=== PATIENT | female | born 1995 | race Caucasian/White ===

== ENCOUNTER → 2020-09-07 15:45 | Outpatient (ROUT) | payer SELFPAY ==
[2020-09-07 15:47] LABS: Urine Drug Scr, Empl Non-NIDA See Separate Report
== END ==
DX: Z02.1 Encounter for pre-employment examination (principal)
CPT/HCPCS: 81099

== ENCOUNTER → 2021-01-13 | Outpatient (CLI) | payer OTHER, SELFPAY | PROVIDERS: Referring Provider Internal Medicine; Visit Provider Internal Medicine | DX: Z23 Encounter for immunization (principal) | CPT/HCPCS: 90471; 90686 ==

== ENCOUNTER 2021-07-02 11:27 | Emergency (ER) | payer OTHER, SELFPAY ==
[2021-07-02 11:59] VITALS: BP 119/82; PULSE 123; RESP 22; TEMP 37; O2SAT 97; BMI 37.8
--- NOTE | 2021-07-02 12:41 | DI.CT.S_ITS ---
PROCEDURE: CT ABDOMEN PELVIS W CON INDICATIONS: LLQ pain>1 week, tachycardic, emesis, no blood in stool TECHNIQUE: After the administration of IV contrast, axial sections were acquired from the lung bases to the pubic symphysis. Coronal and sagittal reformats were performed. For radiation dose reduction, the following was used: automated exposure control, adjustment of mA and/or kV according to patient size. COMPARISON: None. FINDINGS: Image quality: Excellent. Lung bases: Unremarkable. Heart: No significant findings. ABDOMEN: Liver: Diffuse fatty liver infiltration is noted. The liver is prominent in size and demonstrates no suspicious lesions. Gallbladder: Unremarkable. Biliary ducts: Unremarkable. Pancreas: Unremarkable. Spleen: Unremarkable. Adrenal Glands: Unremarkable. Kidneys and Ureters: A simple appearing cyst is seen at the inferior pole of the left kidney measuring 1.8 cm. The kidneys demonstrate normal size and enhance symmetrically. There is no hydronephrosis. Stomach and Bowel: In this patient with this given history, scrutiny is given to the sigmoid colon. No sigmoid colon abnormality is seen. No left lower quadrant inflammatory change can be seen. Stomach, small bowel loops, and colon are unremarkable. A normal appendix is incidentally noted. Peritoneum: No abnormal intraperitoneal fluid. No free air. Ventral Wall: No hernia. Abdominal Nodes: No retroperitoneal or mesenteric adenopathy by size criteria. Vessels: Aorta and inferior vena cava are normal in size. PELVIS: Pelvic Organs: The uterus appears normal for age. No adnexal masses are seen. Bladder: Unremarkable. Pelvic Nodes: No enlarged lymph nodes. Miscellaneous: No inguinal hernias are seen. Bones: Unremarkable. IMPRESSION: Normal sigmoid colon, without diverticulitis. No adnexal masses are seen. Incidental note is made of: Prominent, fatty liver infiltration Simple left renal cyst Normal appendix Dictated by: Jorge Jurado M.D. on 07/02/2021 at 12:28 Approved by: Jorge Jurado M.D. on 07/02/2021 at 12:31
[2021-07-02] MEDS: SODIUM CHLORIDE 0.9% 1,000 ML 1000 ML IV (13:08)
[2021-07-02] MEDS: ONDANSETRON 4 MG/2 ML INJ IV (13:08)
[2021-07-02 13:15] LABS: Add Manual Diff / Slide Review NO; Basophils Absolute Auto 0 /uL (0-100); Basophils Percent Auto 0.3 % (0-2); Eosinophils Absolute Auto 100 /uL (0-450); Eosinophils Percent Auto 0.6 % (2-4); Hematocrit 43.2 % (36-46); Lymphocytes Absolute Auto 900 /uL (1100-4500); Lymphocytes Percent Auto 8.9 % (25-40); Mean Corpuscular HGB Conc 34.8 % (30-36); Mean Corpuscular Hemoglobin 29.6 PG (26-34); Mean Corpuscular Volume 85.2 fL (80-100); Monocytes Absolute Auto 500 /uL (0-900); Monocytes Percent Auto 4.9 % (3-14); Neutrophils Absolute Auto 8200 /uL (1500-7000); Neutrophils Percent Auto 85.3 % (50-75); Platelet Count 248 X10^3/uL (150-400); Red Blood Cell Count 5.08 X10^6/uL (4.0-5.2); Red Cell Distribution Width 12.3 % (11.6-14.8); White Blood Cell Count 9.6 X10^3/uL (4.5-11.0)
--- NOTE | 2021-07-02 13:22 | ED_ITS ---
HPI - Abdominal Pain <NAVI Dunbar - Last Filed: 07/02/21 15:58> General Chief Complaint: Abdominal Pain Stated Complaint: Left side inter. abd pain/vomiting x1wk Time Seen by Provider: 07/02/21 12:36 Source: patient Mode of arrival: Family Vehicle History of Present Illness HPI narrative: 26-year-old female with history of anxiety, depression, chronic UTIs who presents the emergency to the department complaining of 1 week of lower left quadrant pain which has been intermittent in nature. She denies any blood in her stool, states that she has not had any diarrhea or any change your bowel movements, her last menstrual period was 2 weeks ago, she is a , she has a CT scheduled on Sunday from her primary care provider on the [employer]. She was instructed to come to the emergency department if she has any worsening. Patient states that she has been nauseated without any emesis until this morning and she vomited x1. She denies any food this morning. She states that she has some mild left lower back pain but denies any dysuria, urinary frequency, bladder pressure, abnormal vaginal discharge, fever, other abdominal pain, any relation of pain to food. She denies taking any medication for this this morning. she denies any rectal pain, she denies any pain with bowel movements, denies any history of abdominal surgery. Related Data Home Medications Medication Instructions Recorded Confirmed control PO 08/19/20 10/18/20 loratadine 10 mg capsule 10 mg PO DAILY 08/19/20 10/18/20 sertraline 50 mg tablet 50 mg PO DAILY 08/19/20 10/18/20 Previous Rx's Medication Instructions Recorded hydrocortisone-pramoxine 2.5 %-1 % 1 applic TOPICAL BID PRN #57 g 10/18/20 topical cream ondansetron 4 mg disintegrating 4 mg PO Q8H PRN 5 Days #10 tab 07/02/21 tablet sulfamethoxazole 800 1 tab PO BID 7 Days #14 tab 07/02/21 mg-trimethoprim 160 mg tablet (Bactrim DS) tramadol 50 mg tablet 50 mg PO BID PRN #10 tab 07/02/21 Allergies Allergy/AdvReac Type Severity Reaction Status Date / Time No Known Drug Allergies Allergy Unverified 10/18/20 13:10 Review of Systems <NAVI Dunbar - Last Filed: 07/02/21 15:58> Review of Systems Narrative: General: denies fever, chills, malaise, sweats, fatigue Head/Neck: denies headache, neck pain, dizziness Eyes: denies visual changes, eye pain Cardio: denies chest pain, palpitations, edema Respiratory: denies dyspnea, cough, orthopnea GI: endorses left lower quadrant abdominal pain, endorses nausea, emesis x1 was this morning, denies any constipation or or diarrhea : denies dysuria, hematuria, urinary retention, frequency or incontinence MSK: denies joint pain, muscle weakness Skin: denies rash, itching, skin lesions or other Neuro: denies numbness, tingling Patient History <NAVI Dunbar - Last Filed: 07/02/21 15:58> Medical History Anxiety Chronic UTI Depression Hip dysplasia Hx of septic shock Surgical History History of hip surgery Hx of wisdom tooth extraction Family History Grandmother Hypertension Grandfather Diabetes mellitus Mother Thyroid cancer Social History marital status: household members: spouse and children Smoking Status: Former smoker alcohol intake: current substance use type: does not use Smoking Status: Former smoker tobacco type: cigarettes alcohol intake frequency: a few times a month Substance Use Type: does not use Exam <NAVI Dunbar - Last Filed: 07/02/21 15:58> Narrative Exam Narrative: Independently reviewed vitals signs and nursing notes. General: cooperative, appears tired and uncomfortable, well developed and well groomed Head: atraumatic, symmetrical facial expressions Neck: supple, atraumatic, without lymphadenopathy. Eyes: pupils equal round and reactive, EOMI, conjunctiva normal Nose: nares patent, no rhinorrhea Mouth/Throat: uvula midline, moist mucus membranes Cardiovascular: regular rate and rhythm, no peripheral edema, warm extremities Respiratory: normal effort, able to speak in complete sentences, no audible wheezing, stridor, or rales. No retractions or tachypnea. GI: abdomen soft, tender to palpation over left lower quadrant, nondistended, no masses, no exquisite tenderness with exam, without guarding or rebound. MSK: moves all extremities, ambulatory w/steady gait, neurovascularly intact, no weakness Skin: brisk capillary refill, no rash, no erythema Neuro: normal speech and cognition, A&O x3, normal tone Psych: mental status is grossly normal, congruent mood, normal affect, pleasant and cooperative Initial Vital Signs Initial Vital Signs: Vital Signs Temperature 98.6 F 07/02/21 11:59 Pulse Rate 123 H 07/02/21 11:59 Respiratory Rate 22 07/02/21 11:59 Blood Pressure 119/82 07/02/21 11:59 Pulse Oximetry 97 07/02/21 11:59 Course <NAVI Dunbar - Last Filed: 07/02/21 15:58> Orders Ordered: ED Orders 07/02/21 12:41 CT abdomen pelvis w con Stat 07/02/21 13:00 Complete Blood Count AUTO DIFF Stat Comprehensive Metabolic Panel Stat Lactate (Lactic Acid) Stat Lipase Stat Discontinued Medications Sodium Chloride (Normal Saline 0.9%) 1,000 mls @ 1,000 mls/hr IV BOLUS ONE Stop: 07/02/21 13:40 Last Infusion: 07/02/21 14:51 Dose: 0 mls/hr Documented by: Admin: 07/02/21 13:08 Dose: 1,000 mls/hr Documented by: JACKY Ondansetron HCl (Ondansetron 4 Mg/2 Ml Inj) 4 mg IV NOW ONE Stop: 07/02/21 12:42 Last Admin: 07/02/21 13:08 Dose: 4 mg Documented by: JACKY Oxycodone/Acetaminophen (Oxycodone/Acetaminophen 5/325 Tablet) 1 tab PO NOW ONE Stop: 07/02/21 14:48 Last Admin: 07/02/21 14:53 Dose: 1 tab Documented by: JACKY Trimethoprim/Sulfamethoxazole (Trimeth/Sulfa 160/800 (Ds) Tablet) 1 tab PO NOW ONE Stop: 07/02/21 13:52 Last Admin: 07/02/21 14:31 Dose: 1 tab Documented by: JACKY Vital Signs Vital signs: Vital Signs - 8 hr 07/02/21 14:27 07/02/21 15:28 Pulse Rate 105 H 99 H Respiratory Rate 20 16 Blood Pressure 110/68 110/69 Pulse Oximetry 98 98 MDM - Abdominal Pain <NAVI Dunbar - Last Filed: 07/02/21 15:58> Lab Data Result diagrams: 07/02/21 13:00 07/02/21 13:00 Labs: Lab Results 07/02/21 07/02/21 07/02/21 Range/Units 12:20 12:20 13:00 WBC 9.6 (4.5-11.0) X10^3/uL RBC 5.08 (4.0-5.2) X10^6/uL Hgb 15.0 (12.0-16.0) g/dL Hct 43.2 (36-46) % MCV 85.2 (80-100) fL MCH 29.6 (26-34) PG MCHC 34.8 (30-36) % RDW 12.3 (11.6-14.8) % Plt Count 248 (150-400) X10^3/uL Neut % (Auto) 85.3 H (50-75) % Lymph % (Auto) 8.9 L (25-40) % Allen % (Auto) 4.9 (3-14) % Eos % (Auto) 0.6 L (2-4) % Baso % (Auto) 0.3 (0-2) % Neut # (Auto) 8200 H (1808-2481) /uL Lymph # (Auto) 900 L (0553-6551) /uL Allen # (Auto) 500 (0-900) /uL Eos # (Auto) 100 (0-450) /uL Baso # (Auto) 0 (0-100) /uL Sodium (137-145) mmol/L Potassium (3.4-5.1) mmol/L Chloride (98-107) mmol/L Carbon Dioxide (22-32) mmol/L BUN (7-17) mg/dL Creatinine (0.52-1.04) mg/dL Estimated GFR (>60) mL/min BUN/Creatinine Ratio (6-22) Glucose (70-100) mg/dL Lactate (0.7-2.1) mmol/L Calcium (8.4-10.2) mg/dL Total Bilirubin (0.2-1.3) mg/dL AST (14-36) IU/L ALT (<35) IU/L Alkaline Phosphatase (38-126) U/L Total Protein (6.3-8.2) g/dL Albumin (3.5-5.0) g/dL Globulin (1.7-4.1) g/dL Albumin/Globulin Ratio (1.0-2.8) Lipase (23-300) U/L Urine RBC 5-10/hpf H (0-5/HPF) Urine WBC 0-1/hpf (0-5/HPF) Ur Squamous Epith Cells 1-5 /hpf (0-5/HPF) Urine Bacteria Moderate (10-30) H (None) Ur Culture Indicated? Cult not indicated Ur Chlamydia DNA (PCR) Not detected N gonorrhoeae DNA (PCR) Not detected 07/02/21 07/02/21 Range/Units 13:00 13:00 WBC (4.5-11.0) X10^3/uL RBC (4.0-5.2) X10^6/uL Hgb (12.0-16.0) g/dL Hct (36-46) % MCV (80-100) fL MCH (26-34) PG MCHC (30-36) % RDW (11.6-14.8) % Plt Count (150-400) X10^3/uL Neut % (Auto) (50-75) % Lymph % (Auto) (25-40) % Allen % (Auto) (3-14) % Eos % (Auto) (2-4) % Baso % (Auto) (0-2) % Neut # (Auto) (0889-6974) /uL Lymph # (Auto) (1316-5290) /uL Allen # (Auto) (0-900) /uL Eos # (Auto) (0-450) /uL Baso # (Auto) (0-100) /uL Sodium 140 (137-145) mmol/L Potassium 4.2 (3.4-5.1) mmol/L Chloride 108 H (98-107) mmol/L Carbon Dioxide 21 L (22-32) mmol/L BUN 13 (7-17) mg/dL Creatinine 0.67 (0.52-1.04) mg/dL Estimated GFR > 60.0 (>60) mL/min BUN/Creatinine Ratio 19.4 (6-22) Glucose 98 (70-100) mg/dL Lactate 0.9 (0.7-2.1) mmol/L Calcium 9.0 (8.4-10.2) mg/dL Total Bilirubin 1.3 (0.2-1.3) mg/dL AST 57 H (14-36) IU/L ALT 77 H (<35) IU/L Alkaline Phosphatase 58 (38-126) U/L Total Protein 8.0 (6.3-8.2) g/dL Albumin 4.6 (3.5-5.0) g/dL Globulin 3.4 (1.7-4.1) g/dL Albumin/Globulin Ratio 1.4 (1.0-2.8) Lipase 59 (23-300) U/L Urine RBC (0-5/HPF) Urine WBC (0-5/HPF) Ur Squamous Epith Cells (0-5/HPF) Urine Bacteria (None) Ur Culture Indicated? Ur Chlamydia DNA (PCR) N gonorrhoeae DNA (PCR) Point of care testing: Point of Care Testing Test Results Negative Urine Dip Bedside Urine Glucose Negative Bedside Urine Bilirubin + 1 Bedside Urine Ketone +/- 5 Urine Specific [place] 1.030 Bedside Urine Occult Blood +++ Bedside Urine pH 6.0 Bedside Urine Protein +/- 15 Bedside Urine Urobilinogen - Negative Bedside Urine Nitrite - Negative Bedside Urine Leukocytes - Negative Esterase Imaging Data CT scan - abdomen/pelvis: Radiologist's Impression: PROCEDURE:? CT ABDOMEN PELVIS W CON ? INDICATIONS:? LLQ pain>1 week, tachycardic, emesis, no blood in stool ? TECHNIQUE:? After the administration of IV contrast, axial sections were acquired from the lung bases to the pubic symphysis.? Coronal and sagittal reformats were performed.? For radiation dose reduction, the following was used:? automated exposure control, adjustment of mA and/or kV according to patient size. ? COMPARISON:? None. ? FINDINGS:? Image quality:? Excellent.? ? Lung bases:? Unremarkable.? ? Heart:? No significant findings. ? ? ABDOMEN: Liver: Diffuse fatty liver infiltration is noted.? The liver is prominent in size and demonstrates no suspicious lesions. Gallbladder:? Unremarkable.? ? Biliary ducts:? Unremarkable.? ? Pancreas:? Unremarkable.? ? Spleen:? Unremarkable.? ? Adrenal Glands:? Unremarkable.? ? Kidneys and Ureters:? A simple appearing cyst is seen at the inferior pole of the left kidney measuring 1.8 cm.? The kidneys demonstrate normal size and enhance symmetrically.? There is no hydronephrosis. ? Stomach and Bowel:? In this patient with this given history, scrutiny is given to the sigmoid colon.? No sigmoid colon abnormality is seen.? No left lower quadrant inflammatory change can be seen. Stomach, small bowel loops, and colon are unremarkable.? A normal appendix is incidentally noted.? Peritoneum:? No abnormal intraperitoneal fluid.? No free air.? ? Ventral Wall: ? No hernia.? Abdominal Nodes:? No retroperitoneal or mesenteric adenopathy by size criteria.? Vessels:? Aorta and inferior vena cava are normal in size.? ? PELVIS: Pelvic Organs: The uterus appears normal for age.? No adnexal masses are seen.? Bladder:? Unremarkable.? ? Pelvic Nodes: No enlarged lymph nodes.? Miscellaneous: No inguinal hernias are seen. ? ? ? Bones:? Unremarkable.? IMPRESSION:? ? Normal sigmoid colon, without diverticulitis. ? No adnexal masses are seen. ? Incidental note is made of: Prominent, fatty liver infiltration Simple left renal cyst Normal appendix ? Dictated by: Jorge Jurado M.D. on 07/02/2021 at 12:28 ? ? Approved by: Jorge Jurado M.D. on 07/02/2021 at 12:31 ? MDM Narrative Medical decision making narrative: 26-year-old female presents to the emergency department with complaint of left lower quadrant pain intermittently for 1 week which became worse today with nausea, emesis x1 left flank pain. Patient had a scheduled CT this coming Sunday by her primary care provider who is [facility] on [facility] [employer] [employer], she was instructed to come to the emergency department for any worsening of her symptoms. She is a , last menstrual period 2 weeks ago, test was negative, history of chronic UTIs, anxiety and depression. She had 1 episode of emesis this morning, no blood in her stool or her emesis. No fevers, no dysuria. She was tachycardic in triage, with a heart rate of 123, afebrile, no hypotension. UA was negative for leukocytes or bacteria however she had 3+ blood. CT abdomen pelvis was order for concern pyelonephritis versus nephrolithiasis, diverticulitis, perforated viscus concern. CT abdomen pelvis shows Prominent fatty liver infiltration, this is consistent with her mildly elevated liver enzymes, without any previous records to compare to. CT showed normal sigmoid colon without diverticulitis, no adnexal masses are seen, no enlarged lymph nodes, no free air or free fluid in her abdomen, there is a small inferior pole cyst of her left kidney measuring 1.8 cm. There is no hydronephrosis, bladder appeared unremarkable. Her appendix appeared normal as well. Urine was negative. Urine gonorrhea chlamydia are negative. Lab work was significant for left shift without leukocytosis, AST 57, ALT is 77, moderate bacteria in her UA with RBCs, her last menstrual cycle was 2 weeks ago. Urine chlamydia and gonorrhea are still pending, urine was cultured. Patient is appropriate and amenable to discharge home. Vital signs are stable on repeat examination is unremarkable. Patient has been informed of results. Patient has been given strict return to ER precautions for any new or worsening symptoms. Patient understands to follow up closely with outpatient providers as instructed. Patient understands plan and agrees to discharge home. All questions and concerns answered at this time. Discharge Plan Departure Patient Disposition: Home Clinical Impression: Hepatic steatosis UTI (urinary tract infection) Qualifiers: Urinary tract infection type: acute cystitis Hematuria presence: with hematuria Qualified Code(s): N30.01 - Acute cystitis with hematuria Instructions: Urinary Tract Infection, DI for Nonalcoholic Fatty Liver Disease Activity Restrictions/Additional Instructions: *You have been diagnosed with a Urinary tract infection And your liver is enlarged and infiltrated, this is known as fatty liver disease, herpetic steatosis. Please follow-up with your primary care provider about monitoring this half-way. I have ordered a urine culture, please take these antibiotics as prescribed, follow-up with your primary care provider if you are not getting any better. Please have a clear liquid diet for the next 1-2 days until you start feeling better. I have sent some Zofran to your pharmacy as well. You can use this for nausea. I hope you start feeling better soon. Please take Tylenol and ibuprofen as needed for your pain. Please try stay hydrated. *What to do: *Please continue to take your regular medications as directed. [x ] New medication prescriptions sent to your pharmacy: [[facility] ] [ ] New medication written as a paper prescription [ ] No new medications given *Please follow up with your primary care provider in 2-3 days, call for an appointment. Let them know you were seen in the Emergency Department and that we asked that you be seen for follow-up. We will electronically transmit a record of today's note if your PCP is in our system *If you do not have a primary care provider please contact [phone] to establish care with one of [facility] primary care providers. *Return to Emergency Department if you should have any new, worsening or concerning symptoms, such as [fever greater than 101F, chills, worsening pain, persistent vomiting or other bothersome symptoms] Prescriptions: New sulfamethoxazole-trimethoprim [Bactrim DS] 800-160 mg tablet 1 tab PO BID 7 Days Qty: 14 0RF ondansetron 4 mg tablet,disintegrating 4 mg PO Q8H PRN (Reason: nausea) 5 Days Qty: 10 0RF tramadol 50 mg tablet 50 mg PO BID PRN (Reason: pain) Qty: 10 0RF No Action sertraline 50 mg tablet 50 mg PO DAILY 0RF loratadine 10 mg capsule 10 mg PO DAILY 0RF control PO 0RF hydrocortisone-pramoxine 2.5-1 % cream 1 applic topical BID PRN (Reason: hemorrhoids) Qty: 57 5RF Rx Instructions: allow at least 3 hours between applications Referrals: Mandi Dockery MD [Primary Care Provider] -
[2021-07-02 13:35] LABS: Bacteria Urine Moderate (10-30); RBC Urine 5-10/HPF (0-5/HPF); Squamous Epithelial Cell Urine 1-5 /HPF (0-5/HPF); WBC Urine 0-1/HPF (0-5/HPF)
[2021-07-02 13:36] LABS: Culture Indicated Urine Cult Not Indicated
[2021-07-02 14:16] LABS: Alanine Aminotransferase 77 IU/L (<35); Albumin 4.6 g/dL (3.5-5.0); Albumin Globulin Ratio 1.4 (1.0-2.8); Alkaline Phosphatase 58 U/L (38-126); Aspartate Aminotransferase 57 IU/L (14-36); BUN Creatinine Ratio 19.4 (6-22); Bilirubin Total 1.3 mg/dL (0.2-1.3); Blood Urea Nitrogen 13 mg/dL (7-17); Carbon Dioxide 21 mmol/L (22-32); Chloride 108 mmol/L (98-107); Estimated Glomerular Filt Rate > 60.0 mL/min (>60); Globulin 3.4 g/dL (1.7-4.1); Glucose 98 mg/dL (70-100); HEMOLYSIS < 15 (0-50); Lactate (Lactic Acid) 0.9 mmol/L (0.7-2.1); Lipase 59 U/L (23-300); Potassium 4.2 mmol/L (3.4-5.1); Sodium 140 mmol/L (137-145)
[2021-07-02 14:27] VITALS: BP 110/68; PULSE 105; RESP 20; O2SAT 98
[2021-07-02] MEDS: TRIMETH/SULFA 160/800 (DS) TABLET 1 TAB PO (14:31)
[2021-07-02] MEDS: OXYCODONE/ACETAMINOPHEN 5/325 TABLET 1 TAB PO (14:53)
[2021-07-02 15:24] LABS: Urine N gonorrhoeae NOT DETECTED
[2021-07-02 15:28] VITALS: BP 110/69; PULSE 99; RESP 16; O2SAT 98
--- NOTE | 2021-07-02 15:28 | PC.NURSE ---
Patient requested medical record release form, provided and filled out by patient. Sent to medical records
[2021-07-02 15:42] LABS: Urine Chlamydia NOT DETECTED
== END 2021-07-02 15:28 | disposition home or self-care (01) ==
PROVIDERS: Emergency Medicine; Emergency Provider Nurse Practitioner Critical Care Medicine; PCP Student in an Organized Health Care Education/Training Program
DX: K76.0 Fatty (change of) liver, not elsewhere classified (principal); N30.01 Acute cystitis with hematuria; Z87.891 Personal history of nicotine dependence
CPT/HCPCS: 36415; 74177; 80053; 81003; 81015; 81025; 83605; 83690; 85025; 87086; 87491; 87591; 96361; 96374; 99284; J2405

== ENCOUNTER → 2022-01-03 09:00 | Outpatient (CLI) | payer OTHER, SELFPAY | PROVIDERS: PCP Student in an Organized Health Care Education/Training Program; Referring Provider Internal Medicine; Visit Provider Internal Medicine | DX: Z23 Encounter for immunization (principal) | CPT/HCPCS: 90471; 90686 ==

== ENCOUNTER → 2022-06-06 15:20 | Outpatient (CLI) | payer OTHER, SELFPAY ==
[2022-06-06 16:21] LABS: Add Manual Diff / Slide Review NO; Basophils Absolute Auto 0 /uL (0-100); Basophils Percent Auto 0.2 % (0-2); Eosinophils Absolute Auto 100 /uL (0-450); Eosinophils Percent Auto 0.6 % (2-4); Hematocrit 37.8 % (36-46); Hemoglobin 13.1 g/dL (12.0-16.0); Lymphocytes Absolute Auto 2600 /uL (1100-4500); Lymphocytes Percent Auto 24.2 % (25-40); Mean Corpuscular HGB Conc 34.8 % (30-36); Mean Corpuscular Hemoglobin 29.7 PG (26-34); Mean Corpuscular Volume 85.4 fL (80-100); Monocytes Absolute Auto 600 /uL (0-900); Monocytes Percent Auto 6.1 % (3-14); Neutrophils Absolute Auto 7300 /uL (1500-7000); Neutrophils Percent Auto 68.9 % (50-75); Platelet Count 271 X10^3/uL (150-400); Red Blood Cell Count 4.43 X10^6/uL (4.0-5.2); White Blood Cell Count 10.6 X10^3/uL (4.5-11.0)
[2022-06-06 16:57] LABS: Alanine Aminotransferase 35 IU/L (<35); Albumin 3.8 g/dL (3.5-5.0); Albumin Globulin Ratio 1.3 (1.0-2.8); Alkaline Phosphatase 60 U/L (38-126); Aspartate Aminotransferase 25 IU/L (14-36); BUN Creatinine Ratio 14.3 (6-22); Bilirubin Total 0.5 mg/dL (0.2-1.3); Blood Urea Nitrogen 7 mg/dL (7-17); Calcium 9.1 mg/dL (8.4-10.2); Carbon Dioxide 21 mmol/L (22-32); Chloride 101 mmol/L (98-107); Estimated Glomerular Filt Rate > 60 mL/min (>60); Globulin 2.9 g/dL (1.7-4.1); Glucose 72 mg/dL (70-100); HEMOLYSIS < 15 (0-50); Potassium 4.3 mmol/L (3.4-5.1); Sodium 134 mmol/L (137-145); Total Protein 6.7 g/dL (6.3-8.2)
[2022-06-06 17:58] LABS: Hepatitis B Surface Antigen NEGATIVE s/c (NEGATIVE)
[2022-06-06 18:06] LABS: HIV 1 & 2 Ab/Ag 4th Gen Combo NEGATIVE (NEGATIVE); Hep C Virus Ab w/Reflex Quant NEGATIVE s/c (NEGATIVE)
[2022-06-07 08:36] LABS: Varicella IgG Antibody 397 index (Immune >165)
[2022-06-08 07:19] LABS: RPR Screen Non Reactive (Non Reactive)
== END ==
PROVIDERS: PCP Student in an Organized Health Care Education/Training Program; Referring Provider Obstetrics & Gynecology; Visit Provider Obstetrics & Gynecology
DX: Z34.81 Encounter for supervision of other normal pregnancy, first trimester (principal); K76.0 Fatty (change of) liver, not elsewhere classified
CPT/HCPCS: 36415; 80053; 80055; 86787; 86803; 86850; 86900; 86901; 87389

== ENCOUNTER → 2022-06-15 14:19 | Outpatient (CLI) | payer OTHER, SELFPAY ==
--- NOTE | 2022-06-15 14:20 | DI.US.S_ITS ---
PROCEDURE: US OB <= 14 WK FETUS ADD GEST INDICATIONS: twins, dating OUTSIDE/PRIOR DATING DATA: Last menstrual period (LMP): 04/02/2022. LMP-based estimated date of delivery (LAKESHIA): 01/07/2023. First dating scan (date and location): Today's exam. Estimated date of delivery (LAKESHIA) from first dating scan: 01/07/2023, 01/03/2023. The calculations are made using the clinical LAKESHIA of 01/07/2023. TECHNIQUE: Real-time scanning was performed of the fetuses and maternal pelvic organs, with image documentation. Endovaginal scanning: Performed for better visualization of the fetuses and maternal adnexal structures. COMPARISON: None. FINDINGS: General: An intrauterine diamniotic/ dichorionic twin is present, as evidenced by separate placental sites and/or intervening membrane thickness of greater than 2 mm at this early gestational age. Embryo A: Tom[place]-rump length measures 2.9 cm. Heart rate: 165 beats per minute Embryo B: [place]-rump length measures 3.9-4.1 cm Heart rate: 169 beats per minute Maternal organs: Ovaries not visualized. IMPRESSION: Diamniotic, dichorionic live gestational . LAKESHIA of 01/07/2023. We strive to produce accurate, complete, and clear reports of imaging services. To assist us in improving patient care, this report was composed using standard report templates and voice recognition software. Therefore, it may contain abnormal punctuation, insertions and/or omissions. Occasional wrong-word or sound-alike substitutions may occur. Though we review the report and make efforts to correct it, we do recommend that the report be read carefully in proper context to recognize any text inaccuracies. Dictated by: Curry Pinto M.D. on 06/15/2022 at 17:11 Approved by: Curry Pinto M.D. on 06/15/2022 at 17:14
== END ==
PROVIDERS: PCP Student in an Organized Health Care Education/Training Program; Referring Provider Obstetrics & Gynecology; Visit Provider Obstetrics & Gynecology
DX: O30.041 Twin pregnancy, dichorionic/diamniotic, first trimester (principal); Z3A.10 10 weeks gestation of pregnancy
CPT/HCPCS: 76801; 76802

== ENCOUNTER 2022-06-21 13:48 | Emergency (ER) | payer OTHER, SELFPAY ==
[2022-06-21 13:56] VITALS: BP 134/80; PULSE 109; RESP 16; TEMP 36.6; O2SAT 98; BMI 37.3
--- NOTE | 2022-06-21 13:59 | DI.RAD.S_ITS ---
PROCEDURE: XR CHEST 1V INDICATIONS: chest pain TECHNIQUE: One view of the chest was acquired. COMPARISON: None. FINDINGS: Surgical changes and devices: None. Lungs and pleura: Lungs are clear. No pleural effusions or pneumothorax. Mediastinum: Mediastinal contours appear normal. Heart size is normal. Bones and chest wall: No suspicious bony lesions. Overlying soft tissues appear unremarkable. IMPRESSION: No acute cardiopulmonary pathology. Dictated by: Arnaud Nichols M.D. on 06/21/2022 at 15:13 Approved by: Arnaud Nichols M.D. on 06/21/2022 at 15:13
[2022-06-21 14:48] LABS: Add Manual Diff / Slide Review NO; Basophils Absolute Auto 0 /uL (0-100); Basophils Percent Auto 0.3 % (0-2); Eosinophils Absolute Auto 100 /uL (0-450); Eosinophils Percent Auto 0.5 % (2-4); Hematocrit 34.3 % (36-46); Lymphocytes Absolute Auto 1400 /uL (1100-4500); Lymphocytes Percent Auto 14.1 % (25-40); Mean Corpuscular Hemoglobin 29.8 PG (26-34); Monocytes Absolute Auto 800 /uL (0-900); Monocytes Percent Auto 7.5 % (3-14); Neutrophils Absolute Auto 7900 /uL (1500-7000); Neutrophils Percent Auto 77.6 % (50-75); Platelet Count 228 X10^3/uL (150-400); Red Blood Cell Count 4.03 X10^6/uL (4.0-5.2); White Blood Cell Count 10.2 X10^3/uL (4.5-11.0)
[2022-06-21 14:52] LABS: INR 1.1 (0.9-1.3); Prothrombin Time 13.1 SECONDS (10.1-12.7)
[2022-06-21 14:55] LABS: PTT Partial Thromboplastin Tim 28 SECONDS (26-36)
[2022-06-21 14:57] LABS: Alanine Aminotransferase 38 IU/L (<35); Albumin 3.6 g/dL (3.5-5.0); Albumin Globulin Ratio 1.1 (1.0-2.8); Alkaline Phosphatase 47 U/L (38-126); Aspartate Aminotransferase 32 IU/L (14-36); BUN Creatinine Ratio 12.5 (6-22); Bilirubin Total 0.8 mg/dL (0.2-1.3); Blood Urea Nitrogen 6 mg/dL (7-17); Calcium 8.6 mg/dL (8.4-10.2); Carbon Dioxide 22 mmol/L (22-32); Chloride 104 mmol/L (98-107); Creatine Kinase 35 U/L (30-135); Estimated Glomerular Filt Rate > 60 mL/min (>60); Globulin 3.2 g/dL (1.7-4.1); Glucose 87 mg/dL (70-100); HEMOLYSIS 37 (0-50); Lipase 63 U/L (23-300); Magnesium 1.8 mg/dL (1.6-2.3); Potassium 3.7 mmol/L (3.4-5.1); Sodium 135 mmol/L (137-145); Total Protein 6.8 g/dL (6.3-8.2)
[2022-06-21 15:08] LABS: Troponin I < 0.012 ng/mL (0.01-0.034)
[2022-06-21] MEDS: SODIUM CHLORIDE 0.9% 1,000 ML 1000 ML IV (15:43)
--- NOTE | 2022-06-21 17:05 | ED_ITS ---
HPI - Arrhythmia/Palpitations General Chief Complaint: Arrhythmia/Palpitations Stated Complaint: SOB/High HR/11 wks w/ twins Time Seen by Provider: 06/21/22 15:09 Source: patient, RN notes reviewed and old records reviewed Mode of arrival: Wheelchair Limitations: no limitations History of Present Illness HPI narrative: This is a 27-year-old female approximately 11 weeks with history of anxiety, depression who presents with complaint of palpitations patient states she is had episodes on and off throughout the ear she states typically less than once a year, she is been having episode every other day for the past month she states it will feel like it beats hard for 1 or 2 beats and then resolved. Today she was going up and down the stairs to get ready this morning and noted that her heart rate was elevated about 170 she said the top of the stairs rested for several minutes and it slowly resolved. Patient states she felt short of breath when it was elevated. She denies lightheadedness or passing out. She felt winded she states. She denies any chest pain or pressure, no tightness in her chest. No nausea or vomiting today. She states her nausea has been resolving through her . No diaphoresis. She is been constipated but took a stool softener recently. No urinary symptoms. No new swelling in her extremities. Patient states she did increase her sertraline from 50-75 mg last night as she is had increased thoughts of self-harm she states today her symptoms are doing well. Patient states her only medications are sertraline, docusate and vitamins. Prior surgeries wisdom teeth removal. No allergies to drugs. No tobacco, alcohol or illicit. Family history she states her maternal great grandfather had MIs x3 no other cardiac, pulmonary emboli or embolic history, no known arrhythmias. Her primary care is Dr. Dockery at the [facility] and her provider is Dr. Darby locally at [facility]. Patient states she is never had a Holter monitor for prior episodes of palpitations. Related Data Home Medications Medication Instructions Recorded Confirmed sertraline 50 mg tablet 50 mg PO DAILY 08/19/20 06/06/22 prenat.vits,bhumi,cji-exvo-cfgen 1 tab PO DAILY 05/09/22 06/06/22 Allergies Allergy/AdvReac Type Severity Reaction Status Date / Time nickel Allergy Intermediate Rash Uncoded 06/21/22 13:59 Review of Systems Review of Systems ROS Unobtainable: All systems reviewed & are unremarkable except as noted in HPI and below Patient History Medical History Anxiety (~2013) Chronic UTI Depression (~2006) Frequent UTI (~2014) Hip dysplasia (~1993) Hx of septic shock (~2014) Keloid scar (~2019) Liver disease (~2021) Surgical History Anesthesia H/O dilation and curettage History of hip surgery (~2016) History of surgery (~01/25/20) Hx of wisdom tooth extraction (~05/2017) Previous section (~01/14/20) Family History Grandmother Hypertension Diabetes mellitus Mental health problem Sleep apnea Grandfather Diabetes mellitus Sleep apnea Hypertension Mother Thyroid cancer Depression Anxiety Mental health problem Grandfather Gout Brother Trisomy 4p Autism spectrum disorder Social History marital status: number of children: 1 household members: spouse and children lives independently: Yes caregiver/support person: Yes housing: house pets and animals: Yes (1 dog) education level: college (aryan's degree) occupational status: employed current occupational exposures/hazards: No special sudha needs: No travel history: over 6 months ago seatbelt use: always water heater temp set < 120 deg: Yes working smoke detector in home: Yes fire extinguisher in home: Yes carbon monox detector in home: Yes firearms in home: Yes firearms unloaded and locked: Yes do you feel safe at home: Yes Smoking Status: Former smoker second hand exposure: No alcohol intake: former (2-3/week when not ) substance use type: does not use during the past year weight has: remained stable well-balanced diet: daily or most days daily servings fruits/ve-4 caffeine: Yes (aware of 200mg limit) Type(s) of exercise: none, bicycling (stationary bike) and weight lifting frequency: 3-4 times per week Smoking Status: Former smoker tobacco type: cigarettes alcohol intake frequency: a few times a month Substance Use Type: does not use Exam Narrative Exam Narrative: GENERAL: Alert and oriented x three, mild distress. HEENT: Head normocephalic, atraumatic, EOMI, pupils reactive, face symmetric, m oist mucous membranes NECK: Supple, full range of motion CARDIOVASCULAR: Regular rate and rhythm without murmurs, rubs or gallops. No JVD. No swelling bilateral lower extremities. RESPIRATORY: Breath sounds equal bilaterally, no wheezes rales or rhonchi. No tachypnea. No accessory muscle use. Patient speaks in full sentences. ABDOMEN: Soft, nontender. Normoactive bowel sounds all 4 quadrants. No guarding or rebound, rigidity, no mass : No CVA tenderness EXTREMITIES: Normal range of motion, no clubbing or edema. Neurovascularly intact NEUROLOGICAL: Cranial nerves II through XII grossly intact. Moving all extremities SKIN: Warm, dry, no petechiae, no rashes or lesions. Initial Vital Signs Initial Vital Signs: Vital Signs Temperature 98 F 06/21/22 13:56 Pulse Rate 109 H 06/21/22 13:56 Respiratory Rate 16 06/21/22 13:56 Blood Pressure 134/80 06/21/22 13:56 Pulse Oximetry 98 06/21/22 13:56 Oxygen Delivery Method Room Air 06/21/22 13:56 Course Orders Ordered: ED Orders 06/21/22 13:59 XR chest 1V Stat 06/21/22 14:10 EKG-12 Lead Stat 06/21/22 14:38 Complete Blood Count AUTO DIFF Stat Comprehensive Metabolic Panel Stat Lipase Stat Magnesium Stat PTT Partial Thromboplastin Zeke Stat Prothrombin Time INR Stat Troponin & CK Cardiac Panel Stat Discontinued Medications Sodium Chloride (Normal Saline 0.9%) 1,000 mls @ 1,000 mls/hr IV BOLUS ONE Stop: 06/21/22 16:08 Last Infusion: 06/21/22 17:40 Dose: 0 mls/hr Documented By: Admin: 06/21/22 15:43 Dose: 1,000 mls/hr Documented By: NR Vital Signs Vital signs: Vital Signs - 8 hr 06/21/22 13:56 06/21/22 17:51 Temperature 98 F Pulse Rate 109 H 108 H Respiratory Rate 16 24 Blood Pressure 134/80 121/73 Pulse Oximetry 98 97 Oxygen Delivery Method Room Air Room Air [facility] - Arrhythmia/Palpitations Lab Data 06/21/22 14:38 06/21/22 14:38 Labs: Lab Results 06/21/22 06/21/22 06/21/22 Range/Units 14:38 14:38 14:38 WBC 10.2 (4.5-11.0) X10^3/uL RBC 4.03 (4.0-5.2) X10^6/uL Hgb 12.0 (12.0-16.0) g/dL Hct 34.3 L (36-46) % MCV 85.0 (80-100) fL MCH 29.8 (26-34) PG MCHC 35.0 (30-36) % RDW 12.0 (11.6-14.8) % Plt Count 228 (150-400) X10^3/uL Neut % (Auto) 77.6 H (50-75) % Lymph % (Auto) 14.1 L (25-40) % [place] % (Auto) 7.5 (3-14) % Eos % (Auto) 0.5 L (2-4) % Baso % (Auto) 0.3 (0-2) % Neut # (Auto) 7900 H (6629-3870) /uL Lymph # (Auto) 1400 (6321-3201) /uL [place] # (Auto) 800 (0-900) /uL Eos # (Auto) 100 (0-450) /uL Baso # (Auto) 0 (0-100) /uL PT 13.1 H (10.1-12.7) SECONDS INR 1.1 (0.9-1.3) APTT 28 (26-36) SECONDS Sodium 135 L (137-145) mmol/L Potassium 3.7 (3.4-5.1) mmol/L Chloride 104 (98-107) mmol/L Carbon Dioxide 22 (22-32) mmol/L BUN 6 L (7-17) mg/dL Creatinine 0.48 L (0.52-1.04) mg/dL Estimated GFR > 60 (>60) mL/min BUN/Creatinine Ratio 12.5 (6-22) Glucose 87 (70-100) mg/dL Calcium 8.6 (8.4-10.2) mg/dL Magnesium 1.8 (1.6-2.3) mg/dL Total Bilirubin 0.8 (0.2-1.3) mg/dL AST 32 (14-36) IU/L ALT 38 H (<35) IU/L Alkaline Phosphatase 47 (38-126) U/L Total Creatine Kinase 35 (30-135) U/L CK-MB (CK-2) TNP CK-MB (CK-2) Rel Index TNP Troponin I < 0.012 (0.01-0.034) ng/mL Total Protein 6.8 (6.3-8.2) g/dL Albumin 3.6 (3.5-5.0) g/dL Globulin 3.2 (1.7-4.1) g/dL Albumin/Globulin Ratio 1.1 (1.0-2.8) Lipase 63 (23-300) U/L Imaging Data Chest x-ray: Radiologist's Impresson: Close Chest X-Ray (Signed) Arnaud Nichols - 06/21/22 Ultrasound (Signed) Curry Pinto - 06/15/22 Abdomen/Pelvis CT (Signed) Jorge Jurado - 07/02/21 [address] [address] XRay Report Signed Patient: Elissa Rosado MR#: [id number] : 1995 Acct:[id number] Age/Sex: 27 / F Date of Service: 06/21/22 Loc: ED Accession Number: [id number] ?? Procedure: XR chest 1V Ordering Provider: Arianna Pa D.O. PROCEDURE:? XR CHEST 1V ? INDICATIONS:? chest pain ? TECHNIQUE:? One view of the chest was acquired.? ? COMPARISON:? None. ? FINDINGS:? ? Surgical changes and devices:? None.? ? Lungs and pleura:? Lungs are clear.? No pleural effusions or pneumothorax.? ? Mediastinum:? Mediastinal contours appear normal.? Heart size is normal.? ? Bones and chest wall:? No suspicious bony lesions.? Overlying soft tissues appear unremarkable.? ? IMPRESSION:? No acute cardiopulmonary pathology. ? ? Dictated by: Arnaud Nichols M.D. on 06/21/2022 at 15:13 ? ? Approved by: Arnaud Nichols M.D. on 06/21/2022 at 15:13?? ECG Data Attestation: I personally reviewed and interpreted this ECG as follows: Prior ECG tracings: not available for review Interpretation: Ventricular rate of 95 NJ 144 QRS 84 QTC of 422. No acute ST elevation, T-wave inverted in lead RV are appreciated 3 and AVF. No elevation. MDM Narrative Medical decision making narrative: This is a 27-year-old female who presents with complaint of palpitations, patient states she felt winded when her heart rate was fast she states her Apple watch noted to be 170s after she went up and down the stairs several times and resolved after a couple minutes. Patient states she is had episodes in the past but been less than once a this has been every other day for the past month she is approximately 11 weeks she is on sertraline she did increase her dose but only in the last 24 hours, docusate and prenatals. She does not have a strong family history for cardiac, arrhythmias or embolic history. CBC, INR, CMP, troponin lipase are negative. Chest x-ray is negative EKG does not have any with some nonspecific change. Patient was 109 upon arrival. Discussed with patient plan for follow up with her physician for Holter monitor we did discuss return precautions for further workup as needed. Discharge Plan Departure Patient Disposition: Home Clinical Impression: Palpitations Instructions: DI for Palpitations Activity Restrictions/Additional Instructions: Please follow-up with your physician or Dr. Darby for follow-up. If you are having recurrent or persistent palpitations or fast heartbeat they may wish to order a Holter monitor or ZIO patch. You may continue your home medications as prescribed. Please return for new chest pain, shortness of breath, persistently fast or irre gular heartbeat, new swelling in her extremities, passing out, vomiting, new or abdominal pain or other new or concerning changes. Prescriptions: No Action prenat.vits,bhumi,hdy-grhm-sverd Tablet 1 tab PO DAILY sertraline 50 mg tablet 50 mg PO DAILY Referrals: Mandi Dockery MD [Primary Care Provider] - Kristy Darby MD [Physician] - Stand Alone Forms: Patient Portal/API
[2022-06-21 17:51] VITALS: BP 121/73; PULSE 108; RESP 24; O2SAT 97
== END 2022-06-21 17:52 | disposition home or self-care (01) ==
PROVIDERS: Emergency Provider Emergency Medicine; PCP Student in an Organized Health Care Education/Training Program
DX: R00.2 Palpitations (principal); R07.9 Chest pain, unspecified; Z3A.11 11 weeks gestation of pregnancy
CPT/HCPCS: 71045; 80053; 82550; 83690; 83735; 84484; 85025; 85610; 85730; 93005; 93010; 99283; 99284

== ENCOUNTER → 2022-08-15 09:58 | Outpatient (CLI) | payer OTHER, SELFPAY | PROVIDERS: PCP Student in an Organized Health Care Education/Training Program; Visit Provider Obstetrics & Gynecology | DX: Z34.81 Encounter for supervision of other normal pregnancy, first trimester (principal) | CPT/HCPCS: 87086 ==

== ENCOUNTER → 2022-08-15 10:26 | Outpatient (CLI) | payer OTHER, SELFPAY ==
[2022-08-17 20:38] LABS: AFP, Serum 92.4 ng/mL (.); Estriol, Free 5.54 ng/mL (.); Inhibin A, Dimeric 305.53 pg/mL (.); Inhibin A, MoM 2.33 (.); Maternal Ethnicity Caucasian (.); Maternal Weight 227 lbs (.); Number of Fetuses Twins (.); OSBR Risk 1 IN 1100 (.); Results Report (.); Test Results *Screen Negative* (.); hCG, MoM 3.33 (.); hCG, Serum 67700 mIU/mL (.)
== END ==
PROVIDERS: PCP Student in an Organized Health Care Education/Training Program; Referring Provider Obstetrics & Gynecology; Visit Provider Obstetrics & Gynecology
DX: Z34.82 Encounter for supervision of other normal pregnancy, second trimester (principal); Z3A.19 19 weeks gestation of pregnancy
CPT/HCPCS: 36415; 82105; 82677; 84702; 86336; 87086

== ENCOUNTER → 2022-08-23 08:32 | Outpatient (CLI) | payer OTHER, SELFPAY ==
--- NOTE | 2022-08-23 08:33 | DI.US.S_ITS ---
PROCEDURE: US OB >= 14 WK FETUS ADD GEST INDICATIONS: TWIN ANATOMY OUTSIDE/PRIOR DATING DATA: Last menstrual period (LMP): 04/02/22 LMP-based estimated date of delivery (LAKESHIA): 01/07/23. First dating scan (date and location): 06/15/22. Estimated date of delivery (LAKESHIA) from first dating scan: 01/03/23. The calculations are made using the clinical LAKESHIA of 01/07/23. TECHNIQUE: Real-time scanning was performed of the fetuses, with image documentation and biometric measurements. Endovaginal scanning: Not performed COMPARISON: [facility], , OB >= 14 WEEKS FETUS, 08/15/2022, 10:17. [facility], , OB >= 14 WEEKS FETUS, 07/13/2022, 14:55. FINDINGS: General: An intrauterine dichorionic-diamniotic twin is present. Maternal cervical canal: Closed and 4.6 cm long. Normal lower limit is 2.5 cm. FETUS A: Fetus is located on the maternal left side, and is in transverse to the maternal left presentation. Largest amniotic fluid pocket: 4.9 cm; normal range is 2-8 cm. Placental position is posterior , without previa. heart rate: 133 beats per minute. biometrics: Biparietal diameter: 5.1 cm, 21 weeks three days Head circumference: 18.4 cm, 20 weeks five days Abdominal circumference: 15.4 cm, 20 weeks four days Femur length: 3.5 cm, 20 weeks six days Clinically estimated gestational age: 20 weeks three days Composite gestational age from present scan: 20 weeks six days Estimated weight and percentile: 375 g, 64th percentile Anatomic survey: Neuro: Ventricles are normal at less than 10 mm. Cisterna magna is normal at 3-11 mm. Cerebellum is normal in size and morphology. Nuchal skin fold: Normal at less than 6 mm between 14 and 21 weeks gestational age. Face: Nose and lips, facial profile are normal. Spine: Not well seen due to position. Heart: Four chambered view is not well seen. Left and right ventricular outflow tracts appear normal. Diaphragm: Diaphragm is intact. Stomach: Left-sided stomach is present. Kidneys: Not well seen Cord: 3 vessel cord has orthotopic insertion. Bladder: Normal in size. Extremities: All 4 extremities are visualized. FETUS B: Fetus is located on the maternal right side, and is in variable presentation. Largest amniotic fluid pocket: 4.7 cm; normal range is 2-8 cm. Placental position is anterior , without previa. heart rate: 144 beats per minute. biometrics: Biparietal diameter: 5.0 cm, 21 weeks 0 days Head circumference: 18.2 cm, 20 weeks four days Abdominal circumference: 17.1 cm, 22 weeks one day Femur length: 3.4 cm, 20 weeks four days Clinically estimated gestational age: 20 weeks three days Composite gestational age from present scan: 21 weeks one day Estimated weight and percentile: 415 g, 89th percentile Anatomic survey: Neuro: Ventricles are normal at less than 10 mm. Cisterna magna is normal at 3-11 mm. Cerebellum is normal in size and morphology. Nuchal skin fold: Measuring between 7.1 and 7.3 mm, normal is less than six mm. Face: Nose and lips, facial profile are normal. Spine: No evidence for spina bifida. Heart: Four chambered heart view is not well seen. Cardiac outflow tracts appeared within normal limits. Diaphragm: Diaphragm is intact. Stomach: Left-sided stomach is present. Kidneys: No hydronephrosis. Normal ranges are less than 5 mm in 2nd trimester, less than 7 mm in 3rd trimester. Cord: 3 vessel cord has orthotopic insertion. Bladder: Normal in size. Extremities: The left upper extremity was not well seen. IMPRESSION: 1. Viable twin intrauterine . 2. Appropriate and symmetric growth of both fetuses. 3. There is suboptimal visualization of a few anatomic structures in each fetus and follow-up imaging is recommended. 4. Fetus B demonstrates nuchal skin thickening. Correlation with karyotyping is recommended. We strive to produce accurate, complete, and clear reports of imaging services. To assist us in improving patient care, this report was composed using standard report templates and voice recognition software. Therefore, it may contain abnormal punctuation, insertions and/or omissions. Occasional wrong-word or sound-alike substitutions may occur. Though we review the report and make efforts to correct it, we do recommend that the report be read carefully in proper context to recognize any text inaccuracies. Dictated by: Maribeth Shen M.D. on 08/23/2022 at 15:00 Approved by: Maribeth Shen M.D. on 08/23/2022 at 15:25
== END ==
PROVIDERS: PCP Student in an Organized Health Care Education/Training Program; Referring Provider Obstetrics & Gynecology; Visit Provider Obstetrics & Gynecology
DX: O30.042 Twin pregnancy, dichorionic/diamniotic, second trimester (principal); Z3A.20 20 weeks gestation of pregnancy
CPT/HCPCS: 76811

== ENCOUNTER → 2022-09-08 | Outpatient (CLI) | payer OTHER, SELFPAY | PROVIDERS: PCP Student in an Organized Health Care Education/Training Program; Referring Provider Obstetrics & Gynecology; Visit Provider Obstetrics & Gynecology | DX: O30.009 Twin pregnancy, unspecified number of placenta and unspecified number of amniotic sacs, unspecified trimester (principal); Z3A.20 20 weeks gestation of pregnancy; Z34.92 Encounter for supervision of normal pregnancy, unspecified, second trimester | CPT/HCPCS: 76816 ==

== ENCOUNTER 2022-09-14 11:41 | Outpatient (CLI) | payer OTHER, SELFPAY ==
--- NOTE | 2022-09-14 11:46 | DI.US.S_ITS ---
PROCEDURE: US OB >= 14 WEEKS FETUS INDICATIONS: 24 WEEK TWIN GESTATION- VAGINAL BLEEDING. Evaluate cervix. OUTSIDE/PRIOR DATING DATA: Last menstrual period (LMP): 04/02/2022. LMP-based estimated date of delivery (LAKESHIA): 01/07/2023. First dating scan (date and location): Unknown. Estimated date of delivery (LAKESHIA) from first dating scan: Unknown. The calculations are made using the clinical LAKESHIA of 01/07/2023. TECHNIQUE: Real-time scanning was performed of the fetuses, with image documentation and biometric measurements. Endovaginal scanning: Not performed COMPARISON: [facility], US, US OB >= 14 WEEKS FETUS, 09/13/2022, 9:28. FINDINGS: The cervix measures 3.9 cm, and is long and closed. IMPRESSION: The cervix is long and closed, measuring 3.9 cm. We strive to produce accurate, complete, and clear reports of imaging services. To assist us in improving patient care, this report was composed using standard report templates and voice recognition software. Therefore, it may contain abnormal punctuation, insertions and/or omissions. Occasional wrong-word or sound-alike substitutions may occur. Though we review the report and make efforts to correct it, we do recommend that the report be read carefully in proper context to recognize any text inaccuracies. Dictated by: Curry Pinto M.D. on 09/14/2022 at 12:56 Approved by: Curry Pinto M.D. on 09/14/2022 at 12:57
== END 2022-09-14 12:44 | disposition home or self-care (01) ==
LOC: LABOR 11:45 → OB 09-18 13:56
PROVIDERS: PCP Student in an Organized Health Care Education/Training Program; Referring Provider Obstetrics & Gynecology; Visit Provider Obstetrics & Gynecology
DX: O26.892 Other specified pregnancy related conditions, second trimester (principal); Z86.79 Personal history of other diseases of the circulatory system; Z3A.23 23 weeks gestation of pregnancy
CPT/HCPCS: 59025; 76811; G0378; G0379

== ENCOUNTER → 2022-09-26 13:19 | Outpatient (CLI) | payer OTHER, SELFPAY ==
[2022-09-26 15:47] LABS: Hematocrit 31.6 % (36-46); Hemoglobin 11.1 g/dL (12.0-16.0)
[2022-09-26 16:25] LABS: GTT (PREG) 1 Hour PP 50gm Dose 82 mg/dL (76-139)
== END ==
PROVIDERS: PCP Student in an Organized Health Care Education/Training Program; Referring Provider Obstetrics & Gynecology; Visit Provider Obstetrics & Gynecology
DX: Z34.82 Encounter for supervision of other normal pregnancy, second trimester (principal); Z3A.26 26 weeks gestation of pregnancy
CPT/HCPCS: 36415; 82950; 85014; 85018

== ENCOUNTER → 2022-09-27 15:29 | Outpatient (CLI) | payer OTHER, SELFPAY ==
--- NOTE | 2022-09-27 | DI.US.S_ITS ---
PROCEDURE: US OB FOLLOW UP INDICATIONS: FOLLOW UP U/S OUTSIDE/PRIOR DATING DATA: Last menstrual period (LMP): 04/02/2022 LMP-based estimated date of delivery (LAKESHIA): 01/07/2023. First dating scan (date and location): 06/15/2022. Estimated date of delivery (LAKESHIA) from first dating scan: 01/03/2023. TECHNIQUE: Real-time scanning was performed of the fetus, with image documentation. Endovaginal scanning: No COMPARISON: None. FINDINGS: Twin diamniotic dichorionic intrauterine gestations are present. Twin a is in vertex presentation with an amniotic fluid index of 19.1. +and taken is posterior. Heart rate is 145 beats per minute. Twin B is in variable presentation, with an amniotic fluid index of 22.2 cm. A loss and taken is anterior. heart rate is 140 beats per minute. Estimated gestational age for both fetus is 25 weeks 3 days. Twin a survey of anatomy includes normal spine, four-chamber heart view, chest/diaphragm, stomach/abdomen, bilateral renal regions. Twin B survey of anatomy includes four-chamber heart view, chest/diaphragm, stomach/abdomen, bilateral renal regions, and left upper limb. IMPRESSION: 1. Twin living intrauterine gestations as above. Dictated by: Artemio Pollock M.D. on 09/27/2022 at 18:14 Approved by: Artemio Pollock M.D. on 09/27/2022 at 18:16
== END ==
PROVIDERS: PCP Student in an Organized Health Care Education/Training Program; Referring Provider Obstetrics & Gynecology; Visit Provider Obstetrics & Gynecology
DX: O30.042 Twin pregnancy, dichorionic/diamniotic, second trimester (principal); Z3A.25 25 weeks gestation of pregnancy; Z36.2 Encounter for other antenatal screening follow-up
CPT/HCPCS: 76812; 76816

== ENCOUNTER 2022-11-20 16:06 | Outpatient (CLI) | payer OTHER, SELFPAY | END 2022-11-20 16:39 | disposition home or self-care (01) | LOC: LABOR 16:09 → OB 11-23 12:46 | PROVIDERS: PCP Student in an Organized Health Care Education/Training Program; Referring Provider Obstetrics & Gynecology; Visit Provider Obstetrics & Gynecology | DX: O30.043 Twin pregnancy, dichorionic/diamniotic, third trimester (principal); Z3A.33 33 weeks gestation of pregnancy | CPT/HCPCS: 59025; G0378; G0379 ==

== ENCOUNTER 2022-12-04 15:54 | Observation (INO) | payer OTHER, SELFPAY ==
[2022-12-04] MEDS: NIFEdipine 10 MG CAPSULE PO ×4 (17:42→18:46)
[2022-12-04] MEDS: BETAMETHASONE 30 MG/5 ML MDV 12 MG IM (18:05)
[2022-12-05] MEDS: NIFEdipine 30 MG TAB ER PO (08:03)
[2022-12-05 09:09] LABS: Strep Grp B PCR NEG for Grp B Strep
== END 2022-12-05 08:30 | disposition home or self-care (01) ==
PROVIDERS: Admitting Provider Obstetrics & Gynecology; PCP Student in an Organized Health Care Education/Training Program; Referring Provider Obstetrics & Gynecology; Visit Provider Obstetrics & Gynecology
DX: O30.003 Twin pregnancy, unspecified number of placenta and unspecified number of amniotic sacs, third trimester (principal); O47.03 False labor before 37 completed weeks of gestation, third trimester; Z3A.35 35 weeks gestation of pregnancy
CPT/HCPCS: 59025; 59050; 87081; 87653; 96360; 96372; G0378; G0379; J0702

== ENCOUNTER 2022-12-06 09:17 | Observation (INO) | payer OTHER, SELFPAY ==
[2022-12-06] MEDS: BETAMETHASONE 30 MG/5 ML MDV 12 MG IM (09:46)
== END 2022-12-06 09:49 | disposition home or self-care (01) ==
PROVIDERS: Admitting Provider Obstetrics & Gynecology; PCP Student in an Organized Health Care Education/Training Program; Referring Provider Obstetrics & Gynecology; Visit Provider Obstetrics & Gynecology
DX: O30.003 Twin pregnancy, unspecified number of placenta and unspecified number of amniotic sacs, third trimester (principal); Z3A.35 35 weeks gestation of pregnancy
CPT/HCPCS: 96372; G0378; G0379; J0702

== ENCOUNTER 2022-12-12 14:28 | Observation (INO) | payer OTHER, SELFPAY | END 2022-12-12 15:25 | disposition home or self-care (01) | PROVIDERS: Admitting Provider Obstetrics & Gynecology; PCP Student in an Organized Health Care Education/Training Program; Referring Provider Obstetrics & Gynecology; Visit Provider Obstetrics & Gynecology | DX: O30.003 Twin pregnancy, unspecified number of placenta and unspecified number of amniotic sacs, third trimester (principal); O47.03 False labor before 37 completed weeks of gestation, third trimester; Z3A.36 36 weeks gestation of pregnancy | CPT/HCPCS: 59025; G0378; G0379 ==

== ENCOUNTER 2022-12-12 20:22 | Inpatient (IN) | payer OTHER, SELFPAY ==
--- NOTE | 2022-12-12 20:59 | PM.OBHP.IH.1 ---
OB HPI Date/Time Date of admission: 12/12/22 Date Patient Seen: 12/12/22 Time Patient Seen: 20:59 History of Present Condition Chief complaint: observation of labor LAKESHIA Calculator Estimated Delivery Date Method Current WG Current Estimate 01/07/23 LMP (Certain) 36w 3d Other Estimates 01/24/23 Ultrasound #1 34w 0d # 2 Estimated Gestational Age (weeks): 36+3 : 3 Para: 1 care: good care, initiated at week # (9), number of visits (9) and pounds weight gain (14) Dating criteria OB: LMP confirmed by 1st trimester US Ultrasounds: normal 1st trimester US and normal mid trimester US Obstetrical complications: labor Medical complications OB: none Indications Operative indications ( section): previous uterine surgery Preadmission Labs Last OB Lab Results: Blood Type B Positive 12/13/22 11:55 Antibody Screen Negative 12/13/22 11:55 Hematocrit 36.8 % (36-46) 12/13/22 11:55 Hemoglobin 12.9 g/dL (12.0-16.0) 12/13/22 11:55 Hepatitis B Surface Antigen Negative s/c (NEGATIVE) 06/06/22 15:29 Hepatitis C Antibody Negative s/c (NEGATIVE) 06/06/22 15:29 Rubella Antibody 107.0 IU/mL (>15) 06/06/22 15:29 Varicella-Zoster IgG Antibody 397 index (Immune >165) 06/06/22 15:29 Glucose 1 Hour 82 mg/dL (76-139) 09/26/22 13:24 Group B Streptococcus (PCR) Neg for grp b strep 12/05/22 07:57 -: Chlamydia screen: negative, Gonorrhea screen: negative and Urine: negative -: PAP smear: Normal Genetic Screens: Quad screen: Normal External Labs -: Urine: negative Prior (ies) Past Pregnancies Del. Date GA/Weeks Labor Lgth Wt Sex Route Outcome Anesthesia Place Delv Breastfeed Preg Comp Name 09/07/18 8-9 spontaneous 01/14/20 41 96 9 lb 1 oz Male live - full term [facility], [facility] n/a induced hyper- [place] Delivery Date: 09/07/18 Last Updated by: Debbi Preston RN passed w/ medications Evaluation Evaluation Baseline heart rate: 130 Variability: Moderate (11-25) monitor accelerations: Present Monitor Decelerations: Absent Contraction Frequency (minutes): 10 Uterine Contraction Intensity: Mild Status: Category l Dilation (cm): 6 Effacement (%): 80 PFSH Medical History Anxiety (~2013) Chronic UTI Depression (~2006) Frequent UTI (~2014) Hip dysplasia (~1993) Hx of septic shock (~2014) Keloid scar (~2019) Liver disease (~2021) Surgical History Anesthesia H/O dilation and curettage History of hip surgery (~2016) History of surgery (~01/25/20) Hx of wisdom tooth extraction (~05/2017) Previous section (~01/14/20) Family History Grandmother Hypertension Diabetes mellitus Mental health problem Sleep apnea Grandfather Diabetes mellitus Sleep apnea Hypertension Mother Thyroid cancer Depression Anxiety Mental health problem Grandfather Gout Brother Trisomy 4p Autism spectrum disorder Social History marital status: number of children: 1 household members: spouse and children lives independently: Yes caregiver/support person: Yes housing: house pets and animals: Yes (1 dog) education level: college (aryan's degree) occupational status: employed current occupational exposures/hazards: No special sudha needs: No travel history: over 6 months ago seatbelt use: always water heater temp set < 120 deg: Yes working smoke detector in home: Yes fire extinguisher in home: Yes carbon monox detector in home: Yes firearms in home: Yes firearms unloaded and locked: Yes do you feel safe at home: Yes Smoking Status: Never smoker second hand exposure: No alcohol intake: former (2-3/week when not ) substance use type: does not use during the past year weight has: remained stable well-balanced diet: daily or most days daily servings fruits/ve-4 caffeine: Yes (aware of 200mg limit) Type(s) of exercise: none, bicycling (stationary bike) and weight lifting frequency: 3-4 times per week Meds Home Medications and Allergies Home Medications Medication Instructions Recorded Confirmed Type prenat.vits,buhmi,chw-sruq-krppm 1 tab PO DAILY 05/09/22 12/12/22 History ascorbic acid (vitamin C) 1,000 mg 1 g PO DAILY Low iron 10/09/22 12/12/22 History tablet (Vitamin C) ferrous sulfate 325 mg (65 mg 325 mg PO 1XD Low iron 10/09/22 12/12/22 History iron) tablet (Iron (ferrous sulfate)) hydroxyzine HCl 25 mg tablet 25 mg PO QID PRN Anxiety 11/06/22 12/12/22 History sertraline 50 mg tablet 100 mg PO DAILY 11/06/22 12/12/22 History nifedipine 30 mg tablet,extended 30 mg PO BID #30 tabs 12/05/22 12/12/22 Rx release Allergies Allergy/AdvReac Type Severity Reaction Status Date / Time nickel Allergy Intermediate Rash Uncoded 12/12/22 15:34 OB Exam Narrative Exam Narrative: Generally: Patient is sitting up in bed, no acute distress Lungs: Clear to auscultation bilaterally Cardiovascular: Regular rate and rhythm Fundal height: 44 cm Extremities: 1+ edema, 1+ DTRs Objective Labs 12/13/22 11:55 Assessment and Plan Assessment and Plan Assessment and Plan narrative: Assessment: 27-year-old 3 para 1 at 36 +3 weeks' gestation with dichorionic/diamniotic twins Advanced cervical dilation Previous section Keloid scar Plan: Repeat low transverse C section Keloid scar revision The risks, benefits, and alternatives to the procedure were explained to the patient. The risks including bleeding, infection, injury to the bowel, bladder, or ureters. She understands these risks and agrees to proceed. A full par Q was held and consent form was signed. Time Spent with Patient Total time spent with greater than 50% in coordination of care (as documented) at patient's floor/unit and/or counseling patient:: 15-24 minutes
[2022-12-12] MEDS: SERTRALINE 50 MG TABLET 100 MG PO (22:33)
[2022-12-12] MEDS: ZOLPIDEM 5 MG TABLET PO (22:33)
[2022-12-13 02:38] VITALS: BP 118/74
[2022-12-13 12:14] LABS: Add Manual Diff / Slide Review NO; Basophils Absolute Auto 0 /uL (0-100); Basophils Percent Auto 0.3 % (0-2); Eosinophils Absolute Auto 100 /uL (0-450); Eosinophils Percent Auto 0.7 % (2-4); Hematocrit 36.8 % (36-46); Hemoglobin 12.9 g/dL (12.0-16.0); Lymphocytes Absolute Auto 2200 /uL (1100-4500); Lymphocytes Percent Auto 25.5 % (25-40); Mean Corpuscular HGB Conc 35.1 % (30-36); Mean Corpuscular Hemoglobin 30.4 PG (26-34); Mean Corpuscular Volume 86.5 fL (80-100); Monocytes Absolute Auto 500 /uL (0-900); Monocytes Percent Auto 5.7 % (3-14); Neutrophils Absolute Auto 5800 /uL (1500-7000); Neutrophils Percent Auto 67.8 % (50-75); Platelet Count 249 X10^3/uL (150-400); Red Blood Cell Count 4.25 X10^6/uL (4.0-5.2); Red Cell Distribution Width 13.9 % (11.6-14.8); White Blood Cell Count 8.5 X10^3/uL (4.5-11.0)
[2022-12-13] MEDS: LACTATED RINGERS 1,000 ML 100 ML IV ×2 (12:59→13:46)
[2022-12-13] MEDS: CITRIC ACID/SODIUM CITRATE 15 ML SOLUTION 30 ML PO (14:00)
[2022-12-13] MEDS: CEFAZOLIN 2 GM/100 ML PREMIX 100 ML IV (14:15)
--- NOTE | 2022-12-13 14:42 | SUR.OPER ---
Supine on padded OR bed, right hip bumped with gel bump, head on pillow, arms secured on padded arm boards at <90 degrees abduction, legs uncrossed, safety belt at thigh, tape over blanket over lower legs.
[2022-12-13] MEDS: TRIAMCINOLONE 40 MG/ML VIAL IM (14:45)
--- NOTE | 2022-12-13 14:53 | SUR.OPER ---
Addendum entered by Magaly Pitt R.N. 12/13/22 15:08: Baby B born at 1449. Original Note: Baby A born at 1446, Baby b born at 1451. Placenta and cord blood sent to OB
[2022-12-13] MEDS: LACTATED RINGERS 1,000 ML 999 ML IV (15:14)
--- NOTE | 2022-12-13 15:38 | P.OP_ITS ---
Operative Date/Time/Diagnoses Date of procedure: 12/13/22 Time of procedure: 15:38 Pre-op diagnosis: 36-3/7 weeks gestation labor Advanced cervical dilation Previous section Keloid scar Post-op diagnosis: same Procedure & Clinicians Procedure: Repeat low-transverse section Keloid scar revision Extensive lysis of adhesions Same procedure as scheduled: Yes Indications: 36-,3/7 weeks gestation labor Advanced cervical dilation Previous section Keloid scar Surgeon: Kristy Patrick Yes if Unassisted: No Sales And Leasing Consultant: Ellen Khan Reason for Sales And Leasing Consultant: The bar assistant was necessary to retract upon entry into the abdomen. She assisted with retraction with the extensive lysis of adhesions. She assisted with retraction with entry into the uterus. She assisted with fundal pressure with delivery of both infants. She assisted with retraction, clipping of suture, and closure of the contralateral fascia upon exiting the abdomen and uterus. Anesthesia Type: Spinal (With Duramorph) Operative Notes Findings: Live female infant in the vertex presentation,Baby A Live male in the single footling breech presentation, Baby B Clear fluid in both sacs Bladder adhesed to the fascia Adhesions from the upper uterus to the anterior abdominal wall, obstructing view or palpation of either tube and ovary Keloid scar of the previous Pfannenstiel incision Closure Type: primary Specimen(s): cord blood and placenta Intraoperative meds administered: Duramorph, Ketorolac and Pitocin Applied: Catheter (To continuous drainage) Estimated Blood Loss (mL): 600 Blood products transfused: none Procedure in detail: Informed consent was obtained. The patient was taken to the operating room and was placed in the seated position. Spinal anesthesia with duramorph was performed. The patient was then placed in the dorsal lithotomy position and prepped and draped in the usual sterile fashion. After spinal aneshesia was found to be adequate, the previous Pfannenstiel incision with the keloid was excised in an elliptical fashion. The incision was then carried down to the fascia. The fascia was nicked in the midline and the incision extended bilaterally. There were fascial adhesions. The bladder was then found to be adhesed to the anterior abdominal wall and fascia. The bladder was taken down carefully and the bladder blade placed. The uterus was found to be adhesed on the entire fundus to the anterior abdominal wall. The lower uterine segment was incised and the incision continued to the amniotic sac. Sac A was ruptured and there was clear fluid. The infant was delivered with gentle vacuum assistance. The cord was double-clamped and cut and the was handed off to waiting RN/RT/Peds. Cord bloods were obtained. One cord clamp was placed on Sac A cord. Sac B was identified. The amniotic sac was ruptured with copious clear amniotic fluid. Baby B was found to be in the single footling breech presentation. He was delivered by total breech extraction. The cord was double-clamped and cut. Cord bloods were obtained. Two cord clamps were placed on cord B. Pitocin was given in the IVF's. The placenta was delivered by expression. The uterus was cleared of all clots and debris. The uterine incision was closed with 1-0 Chromic in a running interlocking fashion. A second layer of the same suture was used for an imbricating layer. There was an area on the left edge of the incision that was oozing. A figure of eight suture was placed for hemostasis. The gutters were cleared of clot. The tubes and ovaries were not visualized or palpated due to adhesions. The peritoneum was closed with 2-0 vicryl in a running fashion. The fascia was reapproximated with 0-vicryl in a running fashion. The SQ was copiously irrigated with warm normal saline. Six simple interrupted sutures with 3-0 vicryl were placed to reapproximate. The skin was closed with 4-0 Monocryl in a subcuticular fashion. Mastisol and steri strips were applied. An Aquacel dressing was placed. The uterus was expressed of a small amount of old blood. Sponge, lap and instrument counts were correct x 2. The patient tolerated the procedure well and was taken to PACU in stable condition. Complications: none Baby 1: Infant Gender: Female Presentation: vertex Position: Left Occiput Anterior Placental Delivery Description: Expressed Cord Vessel Description: 3 Vessels score (1 min): 8 score (5 min): 9 weight: 6 lb 12 oz 2: Gender: Male Presentation: breech (Single footling breech) Details: footling Placental Delivery Description: Expressed Cord Vessel Description: 3 Vessels and Clamped/Cut score (1 min): 7 score (5 min): 8 weight: 6 lb 5 oz Post-operative Condition: stable Disposition: PACU Aftercare: routine postop
[2022-12-13 15:40] VITALS: BP 131/88; PULSE 81; RESP 22; TEMP 36.5; O2SAT 100
[2022-12-13 15:46] VITALS: BP 117/80; PULSE 76; RESP 15; TEMP 36.6; O2SAT 99
[2022-12-13 15:53] VITALS: BP 130/94; PULSE 81; RESP 12; TEMP 36.5; O2SAT 99
[2022-12-13 15:56] VITALS: BP 119/86; PULSE 75; RESP 12; TEMP 36.4; O2SAT 99
[2022-12-13] MEDS: OXYCODONE IR 5 MG TABLET PO (17:50)
[2022-12-13] MEDS: ACETAMINOPHEN 325 MG TABLET 650 MG PO (19:27)
[2022-12-13] MEDS: KETOROLAC 30 MG/ML VIAL IV (20:59)
[2022-12-14] MEDS: ACETAMINOPHEN 325 MG TABLET 650 MG PO ×4 (00:02→21:36)
[2022-12-14] MEDS: SERTRALINE 50 MG TABLET 100 MG PO ×2 (03:00→21:37)
[2022-12-14] MEDS: KETOROLAC 30 MG/ML VIAL IV ×2 (03:00→09:45)
[2022-12-14 06:32] LABS: Add Manual Diff / Slide Review NO; Basophils Absolute Auto 0 /uL (0-100); Basophils Percent Auto 0.3 % (0-2); Eosinophils Absolute Auto 100 /uL (0-450); Eosinophils Percent Auto 0.8 % (2-4); Hematocrit 32.7 % (36-46); Hemoglobin 11.6 g/dL (12.0-16.0); Lymphocytes Absolute Auto 2300 /uL (1100-4500); Lymphocytes Percent Auto 27.4 % (25-40); Mean Corpuscular HGB Conc 35.5 % (30-36); Mean Corpuscular Hemoglobin 30.9 PG (26-34); Mean Corpuscular Volume 87.1 fL (80-100); Monocytes Absolute Auto 600 /uL (0-900); Monocytes Percent Auto 7.7 % (3-14); Neutrophils Absolute Auto 5300 /uL (1500-7000); Neutrophils Percent Auto 63.8 % (50-75); Platelet Count 202 X10^3/uL (150-400); Red Blood Cell Count 3.76 X10^6/uL (4.0-5.2); Red Cell Distribution Width 13.6 % (11.6-14.8); White Blood Cell Count 8.4 X10^3/uL (4.5-11.0)
[2022-12-14] MEDS: PRENATAL VIT,CALC/IRON/FOLIC 1 TABLET 1 TAB PO (09:46)
[2022-12-14] MEDS: DOCUSATE 100 MG CAPSULE PO (09:46)
[2022-12-14] MEDS: OXYCODONE IR 10 MG TABLET PO ×2 (18:33→21:37)
--- NOTE | 2022-12-14 19:58 | P.PNOB_ITS ---
Subjective - OB Subjective Patient comments: no complaints, pain well controlled, tolerating diet and flatus present baby status: doing well; no nursing well [place] feeding status: breast and bottle feeding Date Patient Seen: 12/14/22 Time Patient Seen: 12:30 Interval history: Voided without the catheter. + flatus. Bleeding tapering. Exam Vital Signs (past 8 hours): Oxygen Delivery Method Room Air Narrative Exam Narrative: Generally: Sitting up in bed, NAD Lungs: CTA bilat CV: RRR Fundus: Firm, at U Ext: 1+ edema, neg Garfield's Objective Labs 12/14/22 06:10 Labs: Laboratory Results - last 24 hr 12/14/22 06:10 WBC 8.4 RBC 3.76 L Hgb 11.6 L Hct 32.7 L MCV 87.1 MCH 30.9 MCHC 35.5 RDW 13.6 Plt Count 202 Neut % (Auto) 63.8 Lymph % (Auto) 27.4 [place] % (Auto) 7.7 Eos % (Auto) 0.8 L Baso % (Auto) 0.3 Neut # (Auto) 5300 Lymph # (Auto) 2300 [place] # (Auto) 600 Eos # (Auto) 100 Baso # (Auto) 0 Assessment & Plan Plan day: 1 plan OB: routine postop care Time Spent With Patient Time: Total time spent is greater than 50% in coordination of care (as documented) at patient's floor/unit and/or counseling patient: Time with patient: 15-24 minutes
[2022-12-14] MEDS: LANOLIN OINT 7 GM 1 APPLIC TOP (21:36)
[2022-12-14] MEDS: IBUPROFEN 600 MG TABLET PO (21:38)
[2022-12-15] MEDS: IBUPROFEN 600 MG TABLET PO ×3 (03:48→15:34)
[2022-12-15] MEDS: OXYCODONE IR 10 MG TABLET PO (03:48)
[2022-12-15] MEDS: ACETAMINOPHEN 325 MG TABLET 650 MG PO ×2 (06:44→15:31)
[2022-12-15] MEDS: PRENATAL VIT,CALC/IRON/FOLIC 1 TABLET 1 TAB PO (09:36)
[2022-12-15] MEDS: DOCUSATE 100 MG CAPSULE PO (09:37)
--- NOTE | 2022-12-19 01:05 | P.DS_ITS ---
Discharge Providers Provider Date of admission: December 13, 2022 Discharge Date: 12/15/22 Primary care physician: Mandi Dockery MD Consults: Anesthesia Discharge provider: Kristy Darby MD Summary Hospital Course Date Patient Seen: 12/15/22 Time Patient Seen: 12:45 Diagnoses: 36-,3/7 weeks gestation Dichorionic/diamniotic twins Previous section Advanced cervical dilation labor Keloid scar Peripartum Data Delivery Method: Section Procedures: Spinal anesthesia Repeat low-transverse section Extensive lysis of fascial, bladder to uterine, and uterine to anterior abdominal wall adhesions complications: none Edward 1: Gender: Female Disposition of : home 2: Gender: Male Disposition of : home Status at Discharge Cognitive/behavioral status at discharge: oriented Functional status at discharge: independent ambulation Overall status at discharge: patient is progressing back to baseline Time Spent with Patient Time attestation: Total time spent providing and/or coordinating discharge services: Time spent: Less than 30 minutes Exam Narrative Exam Narrative: Generally: Patient is sitting up in bed, nursing , no acute distress Lungs: Clear to auscultation bilaterally Cardiovascular: Regular rate and rhythm Fundus: Firm at U +1 Extremities: 1+ edema, negative Homans Discharge Plan Discharge Plan Patient Disposition: Home Discharge orders & Medications Prescriptions: Continued ascorbic acid (vitamin C) [Vitamin C] 1,000 mg tablet 1 g PO DAILY Patient Comments: Taken with iron to increase absorption ferrous sulfate [Iron (ferrous sulfate)] 325 mg (65 mg iron) tablet 325 mg PO 1XD prenat.vits,bhumi,[id number] Tablet 1 tab PO DAILY hydroxyzine HCl 25 mg tablet 25 mg PO QID PRN (Reason: Anxiety) sertraline 50 mg tablet 100 mg PO DAILY oxycodone 5 mg tablet 5 mg PO Q6H PRN (Reason: pain) Qty: 20 0RF Follow up/Referrals: Mandi Dockery MD [Primary Care Provider] - Visit Report/Discharge Packet Stand Alone Forms: Patient Portal/API, Stroke Signs & Symptoms Discharge Data Primary Care Provider: Mandi Dockery
--- NOTE | 2022-12-30 18:57 | P.DS_ITS ---
Discharge Providers Provider Discharge Date: 12/15/22 Primary care physician: Mandi Dockery MD Discharge provider: Kristy Darby MD Summary Hospital Course Date Patient Seen: 12/15/22 Time Patient Seen: 07:30 Diagnoses: Dichorionic/diamniotic twins at 36-,3/7 weeks gestation Previous section Keloid scar Repeat low-transverse section Scar revision Extensive lysis of adhesion Hospital Course: Patient is a 27-year-old 3 para 2 who presented on December 13, 2022 for a scheduled repeat low-transverse section and keloid scar revision. She had twins at 36+ 3 weeks' gestation. She underwent this procedure. She was found to have extensive adhesions in the pelvis. She had a keloid scar which was revised. She underwent the procedure without complication. Her postoperative course was unremarkable. She was discharged home on postop day # 2. She was both babies. She was tolerating a diet. She emptied her bladder without the catheter. She was ambulating independently. Peripartum Data Delivery Method: Section (And scar revision) Procedures: Spinal anesthesia Repeat low-transverse section Extensive lysis of adhesions Scar revision complications: none 1: Gender: Female Disposition of : home 2: Gender: Male Disposition of : home Status at Discharge Cognitive/behavioral status at discharge: oriented Functional status at discharge: independent ambulation Overall status at discharge: patient is progressing back to baseline Time Spent with Patient Time attestation: Total time spent providing and/or coordinating discharge services: Time spent: Less than 30 minutes Exam Narrative Exam Narrative: Generally: Patient is sitting up in bed, no acute distress Lungs: Clear to auscultation bilaterally Cardiovascular: Regular rate and rhythm Fundus: Firm at U Incision: Clean dry and intact with Aquacel dressing Extremities: 1+ edema, negative Homans Discharge Plan Discharge Plan Patient Disposition: Home Discharge orders & Medications Prescriptions: Continued ascorbic acid (vitamin C) [Vitamin C] 1,000 mg tablet 1 g PO DAILY Patient Comments: Taken with iron to increase absorption ferrous sulfate [Iron (ferrous sulfate)] 325 mg (65 mg iron) tablet 325 mg PO 1XD prenat.vits,bhumi,[id number] Tablet 1 tab PO DAILY hydroxyzine HCl 25 mg tablet 25 mg PO QID PRN (Reason: Anxiety) sertraline 50 mg tablet 100 mg PO DAILY oxycodone 5 mg tablet 5 mg PO Q6H PRN (Reason: pain) Qty: 20 0RF Follow up/Referrals: Mandi Dockery MD [Primary Care Provider] - Visit Report/Discharge Packet Stand Alone Forms: Patient Portal/API, Stroke Signs & Symptoms Discharge Data Primary Care Provider: Mandi Dockery
== END 2022-12-15 18:20 | disposition home or self-care (01) | DRG 788 ==
PROVIDERS: Admitting Provider Obstetrics & Gynecology; PCP Student in an Organized Health Care Education/Training Program; Referring Provider Obstetrics & Gynecology; Visit Provider Obstetrics & Gynecology
PROC: 10D00Z1 Extraction of Products of Conception, Low, Open Approach (ICD-10-PCS; CPT 59514; principal; 2022-12-13 14:00)
DX: O34.211 Maternal care for low transverse scar from previous cesarean delivery (principal); O32.8XX0 Maternal care for other malpresentation of fetus, not applicable or unspecified; O30.043 Twin pregnancy, dichorionic/diamniotic, third trimester; Z3A.36 36 weeks gestation of pregnancy; Z37.2 Twins, both liveborn; N73.6 Female pelvic peritoneal adhesions (postinfective)
CPT/HCPCS: 36415; 59025; 59050; 59510; 59514; 85025; 86850; 86900; 86901; G0378; G0379; J0690; J1885; J2274; J2405; J3010